=== PATIENT | male | born 1985 | race Caucasian/White ===

== ENCOUNTER 2021-02-12 21:00 | Emergency (ER) | payer SELFPAY ==
[2021-02-12 21:01] VITALS: BP 141/97; PULSE 98; RESP 16; TEMP 36.8; O2SAT 96; BMI 39.9
--- NOTE | 2021-02-12 21:07 | XR_ITS ---
PROCEDURE INFORMATION: Exam: XR Left Forearm Exam date and time: 02/12/2021 9:07 PM Age: 35 years old Clinical indication: Pain; Lower or forearm; Left; Additional info: Arm pain TECHNIQUE: Imaging protocol: XR Left forearm. Views: 2 views. COMPARISON: CR XR WRIST LT 2V 02/12/2021 9:13 PM FINDINGS: Bones/joints: Normal. Soft tissues: Normal. IMPRESSION: No acute findings.
--- NOTE | 2021-02-12 21:07 | XR_ITS ---
PROCEDURE INFORMATION: Exam: XR Left Hand Exam date and time: 02/12/2021 9:07 PM Age: 35 years old Clinical indication: Pain; Hand; Left; Additional info: Fall, hand pain TECHNIQUE: Imaging protocol: XR Left hand. Views: 3 or more views. COMPARISON: No relevant prior studies available. FINDINGS: Bones/joints: There is an oblique nondisplaced fracture of the base of the left 4th metacarpal. The fracture does not extend into the left common carpometacarpal joint. No evidence of additional fracture. Joint spaces of the left hand appear well maintained. Soft tissues: Mild soft tissue swelling noted over the dorsal aspect of the left hand. IMPRESSION: There is an oblique nondisplaced fracture of the base of the left 4th metacarpal with overlying soft tissue swelling.
--- NOTE | 2021-02-12 21:07 | XR_ITS ---
PROCEDURE INFORMATION: Exam: XR Left Wrist Exam date and time: 02/12/2021 9:07 PM Age: 35 years old Clinical indication: Pain; Wrist; Left; Additional info: Wrist pain, fall TECHNIQUE: Imaging protocol: XR Left wrist. Views: 3 or more views. COMPARISON: CR XR HAND LT 2V 02/12/2021 9:10 PM FINDINGS: Bones/joints: There is a nondisplaced oblique fracture of the base of the left 4th metacarpal. The fracture does not extend into the left common carpometacarpal joint. Soft tissues: Normal. IMPRESSION: There is a nondisplaced oblique fracture of the base of the left 4th metacarpal.
--- NOTE | 2021-02-12 21:08 | [facility].EDFALL ---
ED Disposition Clinical Impression: Metacarpal bone fracture Disposition: Home, Self-Care Condition on Discharge: Good Instructions: DI for a Hand Fracture Additional Instructions: Please follow up with orthopaedics, Dr. Mitchell for further management you will be called to set up appointment. Please keep your splint clean and dry. Please take tylenol and ibuprofen for pain control. Please return to the ED for any concerning symptoms such as discoloration of fingers, worsening pain or swelling or any other concerning symptoms. Referrals: Laura Lynne MD [Primary Care Provider] - Arash Mitchell MD [Staff Physician] - Time of Disposition: 21:30 - Critical Care Critical Care Time: No Attestation: On , the high probability of a clinically significant, sudden or life threatening deterioration of the following system(s) required my full and direct attention, intervention and personal management. The time I documented below is in addition to time spent performing reported procedures but includes the following listed in this critical care notation. Medical Decision Making - Medical Records Medical records reviewed: Yes: I reviewed the patient's medical records. - Isiah Inquiry Pt receiving controlled substance: No Vital Signs: 02/12/21 21:01 02/12/21 22:34 Temperature 98.2 F 97.9 F Temperature Source Oral Oral Pulse Rate 90 Pulse Rate [Right Radial] 98 H Respiratory Rate 16 16 Blood Pressure 140/91 H Blood Pressure [Right Arm] 141/97 H Blood Pressure Mean [Right Arm] 111 Blood Pressure Source Automatic Cuff Blood Pressure Source [Right Arm] Automatic Cuff Blood Pressure Position Sitting Blood Pressure Position [Right Arm] Sitting 02 Sat by Pulse Oximetry 96 Oxygen Delivery Method Room Air Room Air - Lab Data Lab results reviewed: Yes: I reviewed the patient's lab results. Orders (Tests/Meds): ED MEDICATIONS Discontinued Medications Generic Name Dose Route Start Last Admin Trade Name Freq PRN Reason Stop Dose Admin Acetaminophen 1,000 mg 02/12/21 21:08 02/12/21 21:23 Acetaminophen 500mg Tab PO 02/12/21 21:09 1,000 mg ONCE ONE Administration Ibuprofen 600 mg 02/12/21 21:08 02/12/21 21:23 Ibuprofen 600 Mg Tablet PO 02/12/21 21:09 600 mg ONCE ONE Administration Medical Decision Narrative: Mr. Stout is a 35 yo male w/ no significant PMH who presents to the ED for isolated left hand and wrist pain following a mechanical fall, [facility] 6 hours prior. He denies hitting head, -LOC. No neck pain, headache, back pain, chest pain or abdominal pain. Denies any other symptoms. Patient is neurovasculary intact and hemodynamically stable on arrival. No open lacerations or abrasions noted, swelling over dorsal aspect of hand, but no sensory or motor deficits. Patient is given tylenol and ibuprofen for pain control. Differentials to consider include: fractures, Dislocations, MSK. XR of the hand, wrist and forearm results remarkable for 4th metacarpal fracture, non displaced. Patient is placed in ulnar gutter splint and provided a referral to orthopaedics for outpatient management. Patient is discharged in stable condition and provided strict return precautions such as worsening swelling, discoloration of fingers, worsening pain or any other concerning symptoms. Fall HPI - General Chief Complaint: Fall Stated Complaint: AO fall injured L hand Time Seen by Provider: 02/12/21 21:05 Mode of Arrival: Ambulatory Source of Information: Patient Limitations: No Limitations - History of Present Illness HPI Narrative: Mr. Stout is a 35 year old male w/ no significant PMH who presents to the ED for mechanical fall on outstretched hands earlier today 6 hours prior to arrival, [facility]. Patient has isolated L hand pain. No open lacerations or abrasions. Patient is neurovascularly intact. He denies hitting head, -LOC. Patient denies back pain, neck pain, chest pain, abdominal pain, or other
[2021-02-12 22:34] VITALS: BP 140/91; PULSE 90; RESP 16; TEMP 36.6; O2SAT 98
== END 2021-02-12 22:39 | disposition home or self-care (01) ==
PROVIDERS: Emergency Provider Student in an Organized Health Care Education/Training Program; PCP Emergency Medicine
DX: S62.345A Nondisplaced fracture of base of fourth metacarpal bone, left hand, initial encounter for closed fracture (principal); W10.9XXA Fall (on) (from) unspecified stairs and steps, initial encounter; Y92.019 Unspecified place in single-family (private) house as the place of occurrence of the external cause
CPT/HCPCS: 29125; 73090; 73110; 73130; 99283